=== PATIENT | male | born 1960 | race Caucasian/White ===

== ENCOUNTER → 2020-04-30 10:28 | Outpatient (CLI) | payer OTHER, SELFPAY ==
[2020-04-30] MEDS: COVID-19 VACC #1, MRNA(MOD) 100 MCG/0.5 ML VIAL IM (10:36)
== END ==
PROVIDERS: Visit Provider Internal Medicine
DX: Z23 Encounter for immunization (principal)
CPT/HCPCS: 0011A; 91301

== ENCOUNTER → 2020-05-28 10:30 | Outpatient (CLI) | payer OTHER, SELFPAY ==
[2020-05-28] MEDS: COVID-19 VACC #2, MRNA(MOD) 100 MCG/0.5 ML VIAL IM (10:37)
== END ==
PROVIDERS: Visit Provider Internal Medicine
DX: Z23 Encounter for immunization (principal)
CPT/HCPCS: 0012A; 91301

== ENCOUNTER → 2020-12-24 13:28 | Outpatient (CLI) | payer OTHER, SELFPAY ==
[2020-12-24] MEDS: COVID-19 VACC #3, MRNA(MOD) 50 MCG/0.25 ML VIAL IM (13:35)
== END ==
PROVIDERS: Visit Provider Internal Medicine
DX: Z23 Encounter for immunization (principal)
CPT/HCPCS: 0013A; 91301

== ENCOUNTER → 2021-03-25 10:43 | Outpatient (CLI) | payer SELFPAY ==
[2021-03-26 08:35] LABS: Varicella IgG Antibody 1077 index (Immune >165)
== END ==
PROVIDERS: PCP Family Medicine; Referring Provider Family Medicine; Visit Provider Family Medicine
DX: B01.9 Varicella without complication (principal)
CPT/HCPCS: 36415; 86787